=== PATIENT | female | born 1980 | race Caucasian/White ===

== ENCOUNTER 2017-11-01 09:42 | Emergency (ER) | payer OTHER ==
[~2017-11-01] VITALS: Ht 170.2 cm; Wt 99.8 kg
[~2017-11-01 09:42] MED LIST: OXYCODONE-ACETAMINOPHEN 10-325; SULFAMETHOXAZOLE-TMP DS TABLET
--- NOTE | 2017-11-01 10:00 | NUR ---
37F BIB FAMILY WITH C/O BILATERAL LOWER EXTREMITIES PITTING EDEMA/PAIN X 1 WK; PT STATES BLE PAIN UPON PRESSING OR AMBULATING--+2 PEDAL PULSE <3 SEC CAP REFILL; PT STS SHE WAS GIVEN TO DAYS WORTH OF DIURETIC BY PALIATIVE CARE; EDEMA SUBSIDED FOR A DAY OR TWO BUT RETURNED; PT STS HX OF LEFT KIDNEY CANCER; PT DENIES ANY CP OR SOB OR N/V/D; RR ARE EVEN AND UNLABORED; PT CHANGED INTO GOWN; AWAITING ER MD CONNOLLY; PT POSITIONED TO COMFORT; ALL NEEDS MET AT THIS TIME. WILL CONTINUE TO MONITOR.
[2017-11-01 10:10] VITALS: BP 123/65
[2017-11-01 11:09] LABS: BASOPHILS % (AUTO) 0.4 % (0.0-2.0); EOSINOPHILS # (AUTO) 0.1 K/uL (0-0.4); EOSINOPHILS % (AUTO) 1.7 % (0.0-4.0); HEMATOCRIT 34.3 % (36-48); HEMOGLOBIN 11.4 g/dL (12.0-16.0); LYMPHOCYTES # (AUTO) 1.9 K/uL (2.5-16.5); LYMPHOCYTES % (AUTO) 28.2 % (20.5-51.1); MEAN CORPUSCULAR HEMOGLOBIN 29 pg (27-31); MEAN CORPUSCULAR HGB CONC 33 g/dL (33-37); MEAN CORPUSCULAR VOLUME 88.4 fL (80-94); MONOCYTES # (AUTO) 0.5 K/uL (0.8-1.0); MONOCYTES % (AUTO) 7.3 % (1.7-9.3); NEUTROPHILS # (AUTO) 4.1 K/uL (1.8-7.7); NEUTROPHILS % (AUTO) 62.4 % (42.2-75.2); PLATELET COUNT (AUTO) 235 K/uL (140-450); RED BLOOD CELL COUNT(AUTO) 3.88 MIL/uL (4.20-5.40); RED CELL DISTRIBUTION WIDTH 15.8 % (11.6-13.7); WHITE BLOOD COUNT (AUTO) 6.6 K/uL (4.8-10.8)
[2017-11-01 11:23] LABS: ANION GAP 7.4 (8-16); CARBON DIOXIDE 29.5 mmol/L (21-32); CREATININE 0.7 mg/dL (0.6-1.3); POTASSIUM 3.9 mmol/L (3.5-5.1)
[2017-11-01 11:29] LABS: ALBUMIN 2.8 g/dL (3.4-5.0); TOTAL BILIRUBIN 0.2 mg/dL (0.0-1.0)
--- NOTE | 2017-11-01 11:49 | NUR ---
pt ambulated to and from bathroom with steady gait. returned back to rm 1 without incident.
[2017-11-01 13:55] VITALS: BP 132/79
--- NOTE | 2017-11-01 13:56 | NUR ---
Patient discharged with v/s stable. Written and verbal after care instructions given and explained. Patient alert, oriented and verbalized understanding of instructions. Ambulatory with steady gait. All questions addressed prior to discharge. ID band removed. Patient advised to follow up with PMD. Rx of COMPRESSION STOCKINGS given. Patient educated on indication of medication including possible reaction and side effects. Opportunity to ask questions provided and answered.
== END 2017-11-01 13:56 | disposition home or self-care (01) ==
LOC: MED 09:42
DX: R60.0 Localized edema (principal); K21.9 Gastro-esophageal reflux disease without esophagitis; Z85.528 Personal history of other malignant neoplasm of kidney; Z90.49 Acquired absence of other specified parts of digestive tract; Z88.1 Allergy status to other antibiotic agents; Z79.2 Long term (current) use of antibiotics
CPT/HCPCS: 36415; 80053; 81025; 85025; 99285

== ENCOUNTER 2018-06-09 13:41 | Emergency (ER) | payer OTHER ==
[~2018-06-09] VITALS: Ht 170.2 cm; Wt 111.1 kg
[2018-06-09 13:55] VITALS: BP 111/75
--- NOTE | 2018-06-09 13:55 | NUR ---
Pt ambulates back to the lobby
--- NOTE | 2018-06-09 14:56 | NUR ---
PT TO ER BED 2
--- NOTE | 2018-06-09 15:00 | NUR ---
PT BIB CAREGIVER TO THE ED WITH THE CHIEF C/O TONGUE PAIN SINCE YESTERDAY. PT HAS WHITE PATCH ON HER TONGUE. PT STATES HAS NUMBNESS ON HER TONGUE. DENIES ANY OTHER PROBLEM AT THIS TIME. AFEBRILE. ER MD AWARE.
[2018-06-09] MEDS ORDERED: LIDOCAINE VISCOUS 2% 20 ML UDC PO ONE (15:25)
--- NOTE | 2018-06-09 15:40 | NUR ---
Patient discharged with v/s stable. Written and verbal after care instructions given and explained. Patient alert, oriented and verbalized understanding of instructions. Ambulatory with steady gait. All questions addressed prior to discharge. ID band removed. Patient advised to follow up with PMD. Rx of LIDOCAINE AND KENALOG given. Patient educated on indication of medication including possible reaction and side effects. Opportunity to ask questions provided and answered.
[2018-06-09 15:51] VITALS: BP 101/78
== END 2018-06-09 15:40 | disposition home or self-care (01) ==
LOC: MED 13:41
DX: K12.0 Recurrent oral aphthae (principal); K21.9 Gastro-esophageal reflux disease without esophagitis; Z88.1 Allergy status to other antibiotic agents; Z79.899 Other long term (current) drug therapy; Z85.528 Personal history of other malignant neoplasm of kidney
CPT/HCPCS: 99283

== ENCOUNTER 2018-07-05 15:33 | Emergency (ER) | payer OTHER ==
[~2018-07-05] VITALS: Ht 170.2 cm; Wt 111.2 kg
[2018-07-05 15:40] VITALS: BP 118/61
--- NOTE | 2018-07-05 16:10 | NUR ---
38 Y FEMALE BIB FAMILY C/O COUGH X4 WEEKS AND SOB X2 DAYS. PT REPORTS USING INHALER WITH NO RELIEF. ABD PAIN THROUGHOUT ENTIRE ABD FROM COUGH AT 9/10. RR EVEN, NON-LABORED, WHEEZING THROUGOUT. VSS AT THIS TIME. AA0X4. BED IS DOWN, LOCKED, BED RAIL X 1, ERMD NOTIFIED. MEDHX:RENAL CELL CARCINOMA, RX:XANAX, HYDROCODONE, VENLAFAXINE, ALBUTEROL
[2018-07-05 17:02] VITALS: BP 115/71
--- NOTE | 2018-07-05 17:02 | NUR ---
Patient discharged with v/s stable. Written and verbal after care instructions given and explained. Patient alert, oriented and verbalized understanding of instructions. Ambulatory with steady gait. All questions addressed prior to discharge. ID band removed. Patient advised to follow up with PMD. Rx of PREDNISONE, ALBUTEROL given. Patient educated on indication of medication including possible reaction and side effects. Opportunity to ask questions provided and answered.
== END 2018-07-05 17:02 | disposition home or self-care (01) ==
LOC: MED 15:33
DX: R05 Cough (principal); R07.89 Other chest pain; R06.02 Shortness of breath; K21.9 Gastro-esophageal reflux disease without esophagitis; M48.00 Spinal stenosis, site unspecified; M19.90 Unspecified osteoarthritis, unspecified site; Z85.528 Personal history of other malignant neoplasm of kidney; Z88.1 Allergy status to other antibiotic agents; Z79.2 Long term (current) use of antibiotics; Z98.890 Other specified postprocedural states
CPT/HCPCS: 99283

== ENCOUNTER 2018-07-10 13:12 | Observation (INO) | payer OTHER ==
[~2018-07-10] VITALS: Ht 170.2 cm; Wt 110.7 kg
[2018-07-10 13:30] VITALS: BP 108/54
--- NOTE | 2018-07-10 13:40 | NUR ---
pt ambulated to er bed 04
--- NOTE | 2018-07-10 13:45 | NUR ---
LUNG SOUND WHEEZING. ERMD AT BEDSIDE ASSESSING PATIENT. MONITORED
[2018-07-10] MEDS ORDERED: ALBUTEROL SULFATE/IPRATROPIU 3 ML SOL IH ONE (13:50)
--- NOTE | 2018-07-10 13:58 | NUR ---
RESPIRATORY TREATMENT IN PROGRESS
[2018-07-10] MEDS ORDERED: NACL 0.9% 2,000 ML IV ONE (14:05)
--- NOTE | 2018-07-10 14:05 | NUR ---
PT PRESENTED TO THE ED WITH THE CHIEF C/O SOB SINCE THIS MORNING. PER CAREGIVER, PT IS HAVING COUGH WITH PHLEGM FOR 2 WEEKS, NO BLOOD IN COUGH. WHEEZING LUNGS SOUND. +COUGH. DENIES FEVER. PT WAS HERE 2 WEEKS AGO FOR SAME REASON. TAKING PREDNISONE AND INHALER SINCE THEN. DENIES N/V/D. STATES HEADACHE AND PAIN AT LEFT CHEST 8/10 AT THIS TIME. ER AWARE.
--- NOTE | 2018-07-10 14:15 | NUR ---
PT ENCOURAGED TO PROVIDE URINE SAMPLE. REFUSED STARIGHT CATH FOR UA COLLECTION.
[2018-07-10 14:18] LABS: BASOPHILS % (AUTO) 0.2 % (0.0-2.0); EOSINOPHILS % (AUTO) 0.3 % (0.0-4.0); HEMATOCRIT 30.7 % (36-48); HEMOGLOBIN 9.6 g/dL (12.0-16.0); LYMPHOCYTES % (AUTO) 13.4 % (20.5-51.1); MEAN CORPUSCULAR HEMOGLOBIN 26 pg (27-31); MEAN CORPUSCULAR HGB CONC 31 g/dL (33-37); MEAN CORPUSCULAR VOLUME 83.9 fL (80-94); MONOCYTES # (AUTO) 0.7 K/uL (0.8-1.0); MONOCYTES % (AUTO) 4.8 % (1.7-9.3); NEUTROPHILS # (AUTO) 12.1 K/uL (1.8-7.7); NEUTROPHILS % (AUTO) 81.3 % (42.2-75.2); PLATELET COUNT (AUTO) 421 K/uL (140-450); RED BLOOD CELL COUNT(AUTO) 3.66 MIL/uL (4.20-5.40); RED CELL DISTRIBUTION WIDTH 17.3 % (11.6-13.7); WHITE BLOOD COUNT (AUTO) 14.9 K/uL (4.8-10.8)
--- NOTE | 2018-07-10 14:30 | NUR ---
patient stated feeling much better after the treatment.non labored breathing
[2018-07-10 14:36] LABS: PROTHROMBIN TIME 9.9 secs (10.8-13.4)
[2018-07-10 14:39] LABS: ALBUMIN 2.5 g/dL (3.4-5.0); ANION GAP 10.7 (8-16); CARBON DIOXIDE 28.2 mmol/L (21-32); POTASSIUM 3.9 mmol/L (3.5-5.1); TOTAL BILIRUBIN 0.2 mg/dL (0.0-1.0)
[2018-07-10] MEDS ORDERED: AZITHROMYCIN 500 MG in DEXTROSE 5% 250 ML IV ONE (15:45)
[2018-07-10] MEDS ORDERED: cefTRIAXone 1,000 MG VIAL ONE (16:26)
[2018-07-10] MEDS ORDERED: AZITHROMYCIN 500 MG INJ VIAL IV ONE (16:27)
--- NOTE | 2018-07-10 16:48 | NUR ---
Patient admitted to care of DR. SCHWARTZ. Admited to TELE UNIT. Transferred to [facility] [place] via [facility] on stable condition. Belongings list completed. Report given to BRADY Gonzales.
[2018-07-10] MEDS ORDERED: LIDOCAINE VISCOUS 2% 20 ML UDC PO STA (17:07)
[2018-07-10] MEDS ORDERED: [UNRECOGNIZED DRUG - CODE] PO (17:38)
[2018-07-10] MEDS ORDERED: GABA300C PO (17:38)
[2018-07-10] MEDS ORDERED: [UNRECOGNIZED DRUG - CODE] PO (17:38)
[2018-07-10] MEDS ORDERED: ALPR2TAB1 PO (17:38)
--- NOTE | 2018-07-10 17:38 | NUR ---
ADMISSION VITAL SIGNS: TEMP-98.4, HR-92, BP-108/64, RR-18, O2-92%, PAIN-O.
--- NOTE | 2018-07-10 17:48 | NUR ---
RECEIVED REPORT FROM ED NURSE. PT IS AAOX4, AMBULATORY. DX OF PNA. PT IS ABLE TO MAKE NEEDS KNOWN. IV IN THE RIGHT HAND 22G. INTACT AND PATENT. VITAL SIGNS ARE STABLE. WHEEZING HEARD THROUGHOUT LUNG SOUNDS. PT IS VERBALIZING THAT BREATHING TREATMENTS ARE NEEDED. DR SCHWARTZ IS AWARE. PT CURRENTLY INFUSING ROCEPHIN IV. MRSA AND UA TAKEN TO LAB. PT IN STABLE CONDITION. WILL CONTINUE TO MONITOR.
[2018-07-10] MEDS ORDERED: ALUMINUM HYD/MAG/SIMETHICONE 30 ML UDC PO PRN (18:35)
[2018-07-10] MEDS ORDERED: ACETAMINOPHEN 325 MG TAB PO PRN ×2 (18:35)
[2018-07-10] MEDS ORDERED: DOCUSATE SODIUM 250 MG GELCAP PO PRN (18:35)
[2018-07-10] MEDS ORDERED: ZOLPIDEM 5 MG TAB PO PRN (18:35)
[2018-07-10] MEDS ORDERED: SODIUM PHOSPHATE 118 ML ENEM RC PRN (18:35)
[2018-07-10] MEDS ORDERED: MAGNESIUM OXIDE 400 MG TAB PO PRN (18:35)
[2018-07-10] MEDS ORDERED: MAG SULF 2000 MG/WATER PREMIX 50 ML IV PRN (18:35)
[2018-07-10] MEDS ORDERED: MORPHINE SULFATE 2 MG/ML SYR IVP PRN (18:35)
[2018-07-10] MEDS ORDERED: ONDANSETRON 4 MG/2 ML VIAL IVP PRN ×2 (18:35)
[2018-07-10] MEDS ORDERED: cloNIDine 0.1 MG TAB PO PRN (18:35)
[2018-07-10] MEDS ORDERED: LORazepam 2 MG/ML VIAL IVP PRN (18:35)
[2018-07-10] MEDS ORDERED: HYDROcodone/APAP 5/325 MG 1 TAB TAB PO PRN ×2 (18:35)
[2018-07-10] MEDS ORDERED: POTASSIUM CHLORIDE 10 MEQ TABER PO PRN (18:35)
[2018-07-10] MEDS ORDERED: diphenhydrAMINE 50 MG/ML VIAL IVP PRN (18:35)
[2018-07-10] MEDS ORDERED: POTASSIUM CHLORIDE 40 MEQ, LIDOCAINE 1% 25 MG in NACL 0.9% 250 ML IV PRN (18:35)
[2018-07-10] MEDS ORDERED: ALBUTEROL 0.083% 2.5 MG/3 ML NEBU NEB PRN (18:35)
[2018-07-10] MEDS ORDERED: ACETAMINOPHEN 650 MG SUPP RC PRN (18:35)
[2018-07-10] MEDS ORDERED: BISACODYL 10 MG SUPP RC PRN (18:35)
[2018-07-10] MEDS ORDERED: guaiFENesin DM 200/20 MG-10 ML 10 ML UDC PO PRN (18:35)
[2018-07-10 18:42] LABS: APPEARANCE,URINE HAZY (CLEAR); BILIRUBIN,URINE NEGATIVE (NEGATIVE); BLOOD, URINE 1+ (NEGATIVE); COLOR,URINE YELLOW (YELLOW); LEUKOCYTE ESTERASE ,URINE TRACE (NEGATIVE); NITRITE, URINE NEGATIVE (NEGATIVE); UGLUCOSE NEGATIVE (NEGATIVE)
[2018-07-10 18:50] LABS: WBC,URINE 0-5 /HPF (0-5)
[2018-07-10] MEDS ORDERED: ALBUTEROL 0.083% 2.5 MG/3 ML NEBU INH ONE (18:57)
[2018-07-10] MEDS ORDERED: IPRATROPIUM 0.02% 0.5 MG/2.5 ML NEBU INH ONE (18:58)
--- NOTE | 2018-07-10 19:15 | NUR ---
ENDORSED PT TO CRANBERRY FARM SUPERVISOR FOR CONTINUITY OF CARE. PT IN STABLE CONDITION AT THIS TIME.
--- NOTE | 2018-07-10 19:20 | NUR ---
RECEIVED REPORT FROM DAY SHIFT NURSE. AAOX4. NO C/O PAIN OR SOB AT THIS TIME. ON O2 AT 2L/MIN VIA NC. FAMILY AT BEDSIDE. SKIN INTACT. IV TO RIGHT HAND #22G, PATENT AND INTACT. DISCUSSED PLAN OF CARE, PT VERBALIZED UNDERSTANDING. PER DAY SHIFT NURSE, SHE SPOKE WITH DR. SCHWARTZ AND ORDERED TO CONTINUE HOME MEDS. SAFETY PRECAUTION IN PLACE. CALL LIGHT WITHIN REACH.
--- NOTE | 2018-07-10 19:21 | NUR ---
PER DAY SHIFT NURSE, DR. SCHWARTZ ORDERED ROCEPHIN 1 GM IV DAILY AND ZITHROMAX 500 MG IV DAILY. WILL PUT THE ORDER IN THE EMAR.
--- NOTE | 2018-07-10 19:55 | NUR ---
ZITHROMAX 500 MG IVPB DONE. NO ADVERSE REACTION NOTED.
--- NOTE | 2018-07-10 19:55 | NUR ---
SPOKE WITH PT TO CONFIRM HOME MEDS. PER PT, ASK HER CAREGIVER RICHIE ABOUT HER HOME MEDS. SPOKE WITH RICHIE OVER THE PHONE. PER RICHIE PT'S HOME MEDS ARE GABAPENTIN 300 MG AT BEDTIME, XANAX 1 MG TID, DOXEPIN 300 MG BID, VENLAFAXINE 150 MG DAILY AND NORCO 10/325 Q4H PRN FOR PAIN.
[2018-07-10 20:00] VITALS: BP 104/61
[2018-07-10] MEDS ORDERED: ALPRAZOLAM 1 MG PO (20:03)
[2018-07-10] MEDS ORDERED: DOXEPIN HCL PO (20:03)
--- NOTE | 2018-07-10 20:40 | NUR ---
PER PT AND PT'S CAREGIVER, PT IS TAKING DOXEPIN 300 MG BID AT HOME. PER PHARMACIST, MAX DOSE FOR DOXEPIN IS 300 MG/DAY. PHARMACIST WILL ORDER ONE TIME DOSE OF DOXEPIN 300 MG FOR TONIGHT. WILL CLARIFY ORDER WITH DR. SCHWARTZ.
--- NOTE | 2018-07-10 20:48 | NUR ---
PAGED DR. SCHWARTZ FOR DIET, IVF ORDERS. WILL ALSO ASK IF HE WANTS TO REPEAT THE CHEST XRAY BEC THERE'S AN ORDER FOR TODAY AT 1831. DR. HERRERA FARM MECHANIC.
[2018-07-10] MEDS ORDERED: GABAPENTIN 300 MG CAP PO SCH (21:00)
[2018-07-10] MEDS ORDERED: DOXEPIN 25 MG CAP PO SCH (21:00)
--- NOTE | 2018-07-10 21:00 | NUR ---
RECEIVED A CALL FROM DR. HERRERA. PER , WHY AM I ASKING HIM ORDERS, HE DOESN'T KNOW THE PT. NO ORDERS GIVEN. PER , HE WILL ASK DR. SCHWARTZ TO CALL ME.
[2018-07-10] MEDS: DOXEPIN 25 MG CAP PO SCH ×3 (21:30→22:30)
[2018-07-10] MEDS: methylPREDNISolone SS 125 MG/2 ML VIAL IVP SCH (21:54)
--- NOTE | 2018-07-10 22:00 | NUR ---
UNABLE TO COLLECT SPUTUM. PER PT, SHE HAS NO SPUTUM.
--- NOTE | 2018-07-10 22:30 | NUR ---
RECEIVED A CALL FROM DR. SCHWARTZ. ORDERED REGULAR DIET, SALINE LOCK. HE ALSO CANCELLED THE CHEST X-RAY ORDERED FOR TODAY AT 1831.
--- NOTE | 2018-07-10 22:31 | NUR ---
DOXEPIN 25 MG NOT AVAILABLE PER HOUSE SUP. DR. SCHWARTZ MADE AWARE. Addendum: 07/11/18 at 0035 by Fitz Hernandez RN DOXEPIN 300 MG NOT 25 MG.
--- NOTE | 2018-07-10 22:35 | NUR ---
PT C/O UNABLE TO SLEEP. DOXEPIN NOT AVAILABLE. AMBIEN 5 MG PO GIVEN.
[2018-07-11] VITALS: BP 98/59
--- NOTE | 2018-07-11 00:10 | NUR ---
PT SLEEPING. CHECKED V/S, WNL. NO S/S OF SOB OR PAIN.
--- NOTE | 2018-07-11 03:05 | NUR ---
PT ASKED FOR SNACK. SNACK PROVIDED. NEEDS MET AT THIS TIME. CALL LIGHT WITHIN REACH.
[2018-07-11] MEDS: IPRATROPIUM 0.02% 0.5 MG/2.5 ML NEBU INH PRN ×2 (03:29→14:16)
[2018-07-11] MEDS: ALBUTEROL 0.083% 2.5 MG/3 ML NEBU INH PRN ×2 (03:30→14:17)
[2018-07-11 04:00] VITALS: BP 92/62
[2018-07-11] MEDS: methylPREDNISolone SS 125 MG/2 ML VIAL IVP SCH ×2 (04:19→14:06)
--- NOTE | 2018-07-11 04:26 | NUR ---
PT C/O GENERALIZED PAIN 5/10 AND NAUSEA. NORCO 5/325 MG GIVEN FOR PAIN AND ZOFRAN 4 MG FOR NAUSEA. PT TOLERATED WELL.
--- NOTE | 2018-07-11 05:30 | NUR ---
PT LYING IN BED, AWAKE. NO C/O PAIN. NO C/O NAUSEA OR VOMITING. ALL NEEDS PROVIDED AT THIS TIME.
--- NOTE | 2018-07-11 06:15 | NUR ---
PT C/O ANXIETY AND WANTS HER XANAX. EXPLAINED TO PT THAT XANAX 1 MG IS DUE AT 0900 HRS. PT HAS ATIVAN PRN FOR ANXIETY BUT PT REFUSED. PER PT, SHE WILL WAIT FOR XANAX WHEN IS DUE.
[2018-07-11 06:48] LABS: HEMATOCRIT 29.8 % (36-48); HEMOGLOBIN 9.5 g/dL (12.0-16.0); LYMPHOCYTES # (AUTO) 0.6 K/uL (2.5-16.5); LYMPHOCYTES % (AUTO) 5.8 % (20.5-51.1); MEAN CORPUSCULAR HEMOGLOBIN 27 pg (27-31); MEAN CORPUSCULAR HGB CONC 32 g/dL (33-37); MEAN CORPUSCULAR VOLUME 84.4 fL (80-94); MONOCYTES # (AUTO) 0.1 K/uL (0.8-1.0); MONOCYTES % (AUTO) 0.7 % (1.7-9.3); NEUTROPHILS # (AUTO) 10.3 K/uL (1.8-7.7); NEUTROPHILS % (AUTO) 93.5 % (42.2-75.2); PLATELET COUNT (AUTO) 375 K/uL (140-450); RED BLOOD CELL COUNT(AUTO) 3.53 MIL/uL (4.20-5.40); RED CELL DISTRIBUTION WIDTH 17.3 % (11.6-13.7)
[2018-07-11 06:52] LABS: ANION GAP 14.6 (8-16); CARBON DIOXIDE 25.7 mmol/L (21-32); POTASSIUM 4.3 mmol/L (3.5-5.1)
[2018-07-11 06:57] LABS: PROTHROMBIN TIME 9.8 secs (10.8-13.4)
[2018-07-11 07:08] LABS: THYROID STIMULATING HORMONE 0.6 uIU/mL (0.34-3.74)
--- NOTE | 2018-07-11 07:15 | NUR ---
ENDORSED PT TO DAY SHIFT NURSE. PT IN STABLE CONDITION.
--- NOTE | 2018-07-11 07:17 | NUR ---
RECEIVED BEDSIDE REPORT FROM NUISANCE WILDLIFE TRAPPER NURSE FOR CONTINUITY OF CARE. PATIENT IS RESTING ON BED AT THIS TIME. PATIENT IS AOX3, TO NAME, PLACE, AND TIME. ABLE TO MAKE NEEDS KNOWN AND FOLLOW COMMANDS. RESPIRATION EVEN AND UNLABORED. ON 2LPM VIA NC. NO SIGNS OF DISTRESS NOTED. IV ON R HAND 22G, INTACT AND PATENT, SL. SKIN INTACT AND CLEAN. PATIENT IS BEDREST. TELE MONITOR ATTACHED. CONTINENT AND ABLE TO AMBULATE WITH STEADY GAIT. DISCUSSED PLAN OF CARE WITH PATIENT AND PATIENT VERBALIZED OK. BED IN LOW POSITION AND CALL LIGHT WITHIN REACH. INSTRUCTED PATIENT TO USE THE CALL LIGHT FOR ANY ASSISTANCE AND PATIENT WAS AWARE.
[2018-07-11 08:00] VITALS: BP 105/55
--- NOTE | 2018-07-11 08:16 | NUR ---
PATIENT HAS BEEN SCREENED AND CATEGORIZED MODERATE NUTRITION RISK. PATIENT WILL BE SEEN WITHIN 3-5 DAYS OF ADMISSION. 07/13/18[address]
[2018-07-11] MEDS ORDERED: VENLAFAXINE XR 75 MG CAPER PO SCH (09:00)
--- NOTE | 2018-07-11 09:57 | NUR ---
ADMINISTERED MEDS PER MD ORDER, PATIENT TOLERATED WELL. NO SIGNS OF DISTRESS NOTED. TELE MONITOR ATTACHED.
[2018-07-11] MEDS: ALPRAZolam 0.5 MG TAB PO SCH ×3 (09:58→17:14)
[2018-07-11] MEDS ORDERED: AZITHROMYCIN 500 MG in DEXTROSE 5% 250 ML IV SCH (10:00)
--- NOTE | 2018-07-11 11:03 | NUR ---
PATIENT IS RESTING ON BED AND WATCHING TV AT THIS TIME. DENIES PAIN AND SOB. NO SIGNS OF DISTRESS NOTED. AZITHROMYCIN IVP IS INFUSING AT PER MD ORDER. TELE MONITOR ATTACHED.
[2018-07-11 12:00] VITALS: BP 109/56
--- NOTE | 2018-07-11 13:08 | NUR ---
PATIENT IS RESTING ON BED. DENIES PAIN AND SOB. NO SIGNS OF DISTRESS NOTED. TELE MONITOR ATTACHED.
--- NOTE | 2018-07-11 14:10 | NUR ---
PATIENT IS TALKING TO AUNT RICHIE IS AT BEDSIDE. NO SIGNS OF DISTRESS NOTED. TELE MONITOR ATTACHED.
--- NOTE | 2018-07-11 15:20 | NUR ---
PATIENT C/O SEVERE BACK PAIN LEVEL 9, ADMINISTERED PRN PAIN MED. PATIENT IS TALKING TO AUNT RICHIE AT BEDSIDE. NO SIGNS OF DISTRESS NOTED. TELE MONITOR ATTACHED.
[2018-07-11 16:00] VITALS: BP 106/64
--- NOTE | 2018-07-11 17:17 | NUR ---
ADMINISTERED MEDS MD ORDER, PATIENT TOLERATED WELL. PATIENT IS TALKING TO CANDACE AND FAMILY MEMBERS AT BEDSIDE. NO SIGNS OF DISTRESS NOTED. TELE MONITOR ATTACHED.
--- NOTE | 2018-07-11 17:33 | NUR ---
DR SCHWARTZ IS AT BEDSIDE AND TALKING TO PATIENT AND PATIENT'S FAMILY. NO SIGNS OF DISTRESS NOTED. TELE MONITOR ATTACHED.
[2018-07-11] MEDS ORDERED: PRED15SY37 PO (18:07)
[2018-07-11] MEDS ORDERED: PRED20TA5 PO (18:08)
[2018-07-11] MEDS ORDERED: AZIT250T3 PO (18:11)
--- NOTE | 2018-07-11 18:40 | NUR ---
DISCHARGE INSTRUCTION AND MEDICATION PRESCRIPTION PROVIDED TO PATIENT AND FAMILY. EDUCATED PATIENT ON FOLLOW UP WITH MD AFTER DISCHARGE FROM THE HOSPITAL, GO TO THE NEAREST ER OR CALL 911 IF SYMPTOMS WORSEN, SHORT OF BREATH, PAIN, AND SWELLING, EDUCATED PATIENT ON DISEASE MANAGEMENT, SIGNS AND SYMPTOMS, MEDICATION REGIMENS, SIDE EFFECTS, AND DIET REGIMEN. PATIENT AND FAMILY MEMBERS VERBALIZED UNDERSTANDING. D/C IV AND IV CANNULA INTACT, PATIENT TOLERATED WELL. NO BLEEDING AT IV SITE. REMOVED TELE MONITOR AND REMOVED ALL ARM BANDS. PATIENT TOOK ALL HER BELONGINGS. PATIENT IS DISCHARGE AT THIS TIME IN A STABLE CONDITION.
--- NOTE | 2018-07-12 10:32 | NUR ---
Late entry. Confirmed with RN that 2000ml 0.9 NS IV bolus completed at 1630.
--- NOTE | 2018-07-12 11:47 | NUR ---
called office of [facility] [phone] spoke to Emily and follow-up appointment made on 07/20/18 @1030am, [address], [place] [address]. Called patient @ [phone] and patient made aware of the appointment.
== END 2018-07-11 18:40 | disposition home or self-care (01) ==
LOC: MED 13:12 → MMU 16:39
PROVIDERS: ADMIT Internal Medicine Pulmonary Disease; ATTEND Internal Medicine Pulmonary Disease
DX: J18.9 Pneumonia, unspecified organism (principal); F32.9 Major depressive disorder, single episode, unspecified; F31.9 Bipolar disorder, unspecified; Z85.528 Personal history of other malignant neoplasm of kidney; Z98.84 Bariatric surgery status
CPT/HCPCS: 36415; 71045; 80048; 80053; 81001; 83605; 83735; 83880; 84443; 85025; 85610; 85730; 87040; 87070; 87081; 87205; 94640; 94760; 96365; 96366; 96367; 96375; 96376; 99285; G0378; J0456; J0696; J2001; J2270; J2405; J2930; J3480; J7030; J7060; J7613; J7620; J7644; Q0092

== ENCOUNTER 2018-11-10 16:10 | Emergency (ER) | payer OTHER ==
[~2018-11-10] VITALS: Ht 167.6 cm; Wt 115.7 kg
[~2018-11-10 16:10] MED LIST changes: +ALPRAZOLAM 1 MG PO; +AZIT250T3 PO; +DOXEPIN HCL PO; +GABA300C PO; +PRED15SY37 PO; +PRED20TA5 PO; +[UNRECOGNIZED DRUG - CODE] PO
[2018-11-10 16:21] VITALS: BP 130/88
--- NOTE | 2018-11-10 16:27 | NUR ---
PT TO WAIT IN ER LOBBY. VSS. AA0X4.
--- NOTE | 2018-11-10 22:11 | NUR ---
38 Y/O FEMALE PRESENTS TO ED WITH C/O CHRONIC BACK PAIN AND ARTHRITIS. PT STATES SHE NEEDS "PAIN PILLS." 12/28 PAIN. PAIN PRESENT >6 MONTHS. PT STATES SHE IS "IN-BETWEEN" PHYSICIANS AT THIS TIME. ER MD AWARE. CONTINUE TO MONITOR.
--- NOTE | 2018-11-10 22:11 | NUR ---
PT AMBULATED TO CHAIR C.
[2018-11-10 22:40] VITALS: BP 128/72
--- NOTE | 2018-11-10 22:40 | NUR ---
DISCHARGE PAPERS GIVEN TO PT. RX OF NORCO GIVEN. SIDE EFFECTS EXPLAINED. INSTRUCTED TO F/U WITH PCP AND WHEN TO RETURN TO ER. PT VERBALLIZED UNDERSTANDING OF DC INSTRUCTIONS. ALL QUESTIONS ANSWERED.
== END 2018-11-10 22:40 | disposition home or self-care (01) ==
LOC: MED 16:10
DX: M54.89 Other dorsalgia (principal); G89.29 Other chronic pain; Z76.0 Encounter for issue of repeat prescription; Z88.1 Allergy status to other antibiotic agents; Z88.6 Allergy status to analgesic agent; K21.9 Gastro-esophageal reflux disease without esophagitis; Z85.528 Personal history of other malignant neoplasm of kidney; Z79.899 Other long term (current) drug therapy
CPT/HCPCS: 99283

== ENCOUNTER 2019-05-02 15:42 | Emergency (ER) | payer OTHER ==
[~2019-05-02] VITALS: Ht 177.8 cm; Wt 114.3 kg
[2019-05-02 15:45] VITALS: BP 119/67
--- NOTE | 2019-05-02 15:51 | NUR ---
PT AMBULATED TO BED 09.
[2019-05-02] MEDS: ALBUTEROL 0.083% 2.5 MG/3 ML NEBU INH ONE (16:06)
[2019-05-02] MEDS: IPRATROPIUM 0.02% 0.5 MG/2.5 ML NEBU INH ONE (16:06)
[2019-05-02] MEDS: HYDROcodone/APAP 5/325 MG 1 TAB TAB PO ONE (16:20)
--- NOTE | 2019-05-02 16:22 | NUR ---
39 Y/O F C/C FEVER X 1 DAY. PER PT DID NOT TAKE ANYTHING AT HOME FOR FEVER. PT NOT TAKEN FLU SHOT; NO ONE SICK AT HOME. BACK PAIN 10/28. ALLERGIES PNC, MORPHINE. HX CARCINOMA,LUMBAR DISEASE. RX NORCO, ADOXIPIN. DENIES N/V/D. SIDE RAIL X1. FAMILY AT BEDSIDE.
--- NOTE | 2019-05-02 18:03 | NUR ---
Patient discharged with v/s stable. Written and verbal after care instructions given and explained. Patient alert, oriented and verbalized understanding of instructions. Ambulatory with steady gait. All questions addressed prior to discharge. ID band removed. Patient advised to follow up with PMD. Rx of AZITHROMYCIN , ALBURETOL WITH CHAMBER, PROMETHAZINE WITH CODEINE given. Patient educated on indication of medication including possible reaction and side effects. Opportunity to ask questions provided and answered.
[2019-05-02 18:04] VITALS: BP 122/79
== END 2019-05-02 18:03 | disposition home or self-care (01) ==
LOC: MED 15:42
DX: J20.9 Acute bronchitis, unspecified (principal); K21.9 Gastro-esophageal reflux disease without esophagitis; Z87.448 Personal history of other diseases of urinary system; Z85.9 Personal history of malignant neoplasm, unspecified; Z79.899 Other long term (current) drug therapy; Z88.1 Allergy status to other antibiotic agents; Z88.5 Allergy status to narcotic agent
CPT/HCPCS: 71045; 87804; 94640; 99284; J7613; J7644; Q0092

== ENCOUNTER 2019-10-19 19:03 | Emergency (ER) | payer OTHER ==
[~2019-10-19] VITALS: Ht 170.2 cm; Wt 90.7 kg
[2019-10-19 19:09] VITALS: BP 156/91
--- NOTE | 2019-10-19 19:16 | NUR ---
PT AMBULATED TO BED 2 WITH STEADY GAIT
--- NOTE | 2019-10-19 19:20 | NUR ---
PT 39 Y/O FEMALE BIB SELF FOR C/O ANXIETY X 1 DAY. PT STATES, "I JUST WOKE UP FEELING ANXIOUS." PT STATES NOTHIGN TRIGGERED ANXIETY BUT SHE HAS BEEN UNDER A LOT OF STRESS DUE TO FAMILY. PT STATES, "I USED TO TAKE XANAX TO HELP ME BUT I HAVEN'T IN ABOUT 5 MONTHS." PT AAOX 4. RESPIRATIONS ARE EVEN AND UNLABORED. SKIN IS WARM AND DRY TO TOUCH. DENIES PAIN. PT DENIES SI/HI. DENIES A/V HALLUCINATIONS. PT STATES SHE FEELS SAFE AT HOME. MEDHX: ANXIETY ALLERGIES: NKA
--- NOTE | 2019-10-19 19:35 | NUR ---
PATIENT LEFT WITHOUT BEING SEEN BY DR. YA. NO FURTHER CARE PROVIDED FOR PATIENT.
== END 2019-10-19 19:35 | disposition left against medical advice (07) ==
LOC: MED 19:03
DX: F41.9 Anxiety disorder, unspecified (principal); Z53.21 Procedure and treatment not carried out due to patient leaving prior to being seen by health care provider

== ENCOUNTER 2019-12-18 20:49 | Emergency (ER) | payer OTHER ==
[~2019-12-18] VITALS: Ht 170.2 cm; Wt 93.0 kg
[2019-12-18 20:49] VITALS: BP 146/91
--- NOTE | 2019-12-18 20:49 | NUR ---
PT KARL VILLALTAS. TAKEN TO BED 4
--- NOTE | 2019-12-18 21:02 | NUR ---
PT IS C/O LLQ PAIN RADIATING INTO HER L LOWER BACK X 2 DAYS, PAIN IS A STABBING TYPE PAIN 09/27. AERA IS PAINFUL TO PALPATION. +N/D, DENIES VOMITING. AFEBRILE. PT ALSO C/O BURNING WITH URINATION AT TIMES, DENIES BLOOD IN URINE. PT HAS HX OF L KIDNEY CA AND HAD PART OF L KIDNEY REMOVED. PT BEGAN HAVING DIZZINESS 1 HR AGO WELL. NO VISION ISSUES, NO HEADACHE. BED IN LOWEST POSITION AND SIDERAIL UP X 1 ALLERGIES - AMOX, MORPHINE HX - L KIDNEY CA
--- NOTE | 2019-12-18 21:12 | NUR ---
PT IS NOW ALSO C/O OF VAGINAL DISCHARGE WITH A FOUL ODOR X 1 MONTH, HAS NOT SEEN A DOCTOR REGARDING ISSUE. PT HAS NOT HAD A PERIOD IN MONTHS BUT STATES SHE'S TAKEN MULITPLE PREGNANCT TESTS AND THEY HAVE ALL BEEN NEGATIVE. ADVISED WE NEED A UA FROM PT, CUP AT BEDSIDE, SHE IS UNABLE TO GO AT THIS TIMW.
--- NOTE | 2019-12-18 21:29 | NUR ---
Dr. Paz examining patient.
[2019-12-18] MEDS ORDERED: ONDANSETRON 4 MG/2 ML VIAL IVP ONE (21:35)
[2019-12-18] MEDS ORDERED: NACL 0.9% 1,000 ML IV ONE (21:35)
[2019-12-18] MEDS ORDERED: MECLIZINE 25 MG TAB PO ONE ×2 (21:35→22:55)
--- NOTE | 2019-12-18 21:54 | NUR ---
PT UP AND AMBULATED TO RESTROOM WITH STEADY GAIT
[2019-12-18 22:10] LABS: BASOPHILS % (AUTO) 0.5 % (0.0-2.0); EOSINOPHILS % (AUTO) 0.6 % (0.0-4.0); HEMATOCRIT 30.9 % (36-48); HEMOGLOBIN 9.7 g/dL (12.0-16.0); LYMPHOCYTES # (AUTO) 2.6 K/uL (2.5-16.5); LYMPHOCYTES % (AUTO) 34.5 % (20.5-51.1); MEAN CORPUSCULAR HEMOGLOBIN 26 pg (27-31); MEAN CORPUSCULAR HGB CONC 31 g/dL (33-37); MEAN CORPUSCULAR VOLUME 82.1 fL (80-94); MONOCYTES # (AUTO) 0.6 K/uL (0.8-1.0); MONOCYTES % (AUTO) 8.5 % (1.7-9.3); NEUTROPHILS # (AUTO) 4.1 K/uL (1.8-7.7); NEUTROPHILS % (AUTO) 55.9 % (42.2-75.2); PLATELET COUNT (AUTO) 370 K/uL (140-450); RED BLOOD CELL COUNT(AUTO) 3.76 MIL/uL (4.20-5.40); RED CELL DISTRIBUTION WIDTH 17.7 % (11.6-13.7); WHITE BLOOD COUNT (AUTO) 7.4 K/uL (4.8-10.8)
[2019-12-18] MEDS ORDERED: NITROFURANTOIN 100 MG CAP PO ONE (22:10)
--- NOTE | 2019-12-18 22:14 | NUR ---
URINE DIP AND PREG DONE AND SHOWN TO . UA TAKEN TO LAB.
[2019-12-18 22:25] LABS: ANION GAP 11.1 (8-16); ASPARTATE AMINOTRANSFERASE 20 U/L (15-37); CARBON DIOXIDE 26.3 mmol/L (21-32); CHLORIDE 107 mmol/L (98-107); CREATININE 0.9 mg/dL (0.6-1.3); GFR ARICAN-AMERICAN 90 mL/min (>90); GLUCOSE 108 mg/dL (74-106); LIPASE 82 U/L (73-393); POTASSIUM 3.4 mmol/L (3.5-5.1); SODIUM SERUM 141 mmol/L (136-145); TOTAL BILIRUBIN 0.3 mg/dL (0.0-1.0); UREA NITROGEN, BLOOD 9 mg/dL (7-18)
[2019-12-18 22:33] LABS: BARBITURATE, URINE NEGATIVE ng/ml (NEG <=200); BENZODIAZEPINE, URINE NEGATIVE ng/mL (NEG <=200); CANNABINOID, URINE NEGATIVE ng/mL (NEG <=50); COCAINE, URINE NEGATIVE ng/mL (NEG <=300); OPIATE, URINE NEGATIVE ng/mL (NEG <=2000); PHENCYCLIDINE SCREEN,URINE NEGATIVE ng/mL (NEG <=25)
[2019-12-18] MEDS ORDERED: KETOROLAC 30 MG/ML VIAL IVP ONE (22:55)
[2019-12-18 23:25] VITALS: BP 142/88
--- NOTE | 2019-12-18 23:27 | NUR ---
Patient discharged with v/s stable. Written and verbal after care instructions given and explained. Patient alert, oriented and verbalized understanding of instructions. Ambulatory with steady gait. All questions addressed prior to discharge. ID band removed. Patient advised to follow up with PMD. Rx of MECLIZINE, IBUPROFEN, AND MACROBID given. Patient educated on indication of medication including possible reaction and side effects. Opportunity to ask questions provided and answered.
[2019-12-18 23:59] LABS: APPEARANCE,URINE CLOUDY (CLEAR); BILIRUBIN,URINE NEGATIVE (NEGATIVE); BLOOD, URINE NEGATIVE (NEGATIVE); COLOR,URINE YELLOW (YELLOW); LEUKOCYTE ESTERASE ,URINE 1+ (NEGATIVE); NITRITE, URINE POSITIVE (NEGATIVE); UGLUCOSE NEGATIVE (NEGATIVE)
[2019-12-19 00:09] LABS: RBC,URINE 0-5 /HPF (0-5)
[2019-12-19 00:10] LABS: URINE AMORPHOUS URATE 1+ /HPF (None Seen)
--- NOTE | 2019-12-21 15:48 | NUR ---
DISCREPANCY CALL BACK LOG PAPER REVIEWED BY DR. INFANTE - PLACED IN DISCREPENCY LOG
== END 2019-12-18 23:27 | disposition home or self-care (01) ==
LOC: MED 20:49
DX: R42 Dizziness and giddiness (principal); N39.0 Urinary tract infection, site not specified; F15.10 Other stimulant abuse, uncomplicated; F17.210 Nicotine dependence, cigarettes, uncomplicated; N28.9 Disorder of kidney and ureter, unspecified; Z72.0 Tobacco use; Z88.0 Allergy status to penicillin; Z88.1 Allergy status to other antibiotic agents; Z88.6 Allergy status to analgesic agent; Z85.9 Personal history of malignant neoplasm, unspecified; Z79.899 Other long term (current) drug therapy
CPT/HCPCS: 36415; 80053; 80305; 81001; 81025; 83690; 84484; 84702; 85025; 87086; 93005; 96361; 96374; 99284; G0482; J1885; J2405; J7030; J8597

== ENCOUNTER 2019-12-24 18:32 | Emergency (ER) | payer OTHER ==
[~2019-12-24] VITALS: Ht 170.2 cm; Wt 99.8 kg
[2019-12-24 18:35] VITALS: BP 132/76
--- NOTE | 2019-12-24 19:52 | NUR ---
PT WAS D/C WITH VSS. PT WAS INSTRUCTED TO FOLLOW UP WITH PCP AND EDUCATED ON IN HOME CARE. PT UNDERSTOOD. NO SIGN OF DISTRESS NOTED. PT AMBULATED OUT OF ER. PT WAS GIVEN MEDICATION PRESCRIPTION.
[2019-12-24 19:54] VITALS: BP 132/76
== END 2019-12-24 19:54 | disposition home or self-care (01) ==
LOC: MED 18:32
DX: N39.0 Urinary tract infection, site not specified (principal); F15.10 Other stimulant abuse, uncomplicated; K21.9 Gastro-esophageal reflux disease without esophagitis; N28.9 Disorder of kidney and ureter, unspecified; Z98.84 Bariatric surgery status; Z88.1 Allergy status to other antibiotic agents; Z88.6 Allergy status to analgesic agent; Z79.899 Other long term (current) drug therapy; Z85.9 Personal history of malignant neoplasm, unspecified
CPT/HCPCS: 81002; 81025; 82948; 99283

== ENCOUNTER 2020-03-07 11:13 | Emergency (ER) | payer OTHER | END 2020-03-07 17:10 | disposition left against medical advice (07) | LOC: MED 11:13 | DX: Z53.21 Procedure and treatment not carried out due to patient leaving prior to being seen by health care provider (principal) ==

== ENCOUNTER 2020-03-08 16:26 | Emergency (ER) | payer OTHER ==
[~2020-03-08] VITALS: Ht 170.2 cm; Wt 93.0 kg
[2020-03-08 16:45] VITALS: BP 135/79
[2020-03-08 17:42] LABS: BASOPHILS % (AUTO) 0.5 % (0.0-2.0); EOSINOPHILS # (AUTO) 0.1 K/uL (0-0.4); HEMATOCRIT 32.3 % (36-48); HEMOGLOBIN 10.1 g/dL (12.0-16.0); LYMPHOCYTES # (AUTO) 2.5 K/uL (2.5-16.5); LYMPHOCYTES % (AUTO) 35.1 % (20.5-51.1); MEAN CORPUSCULAR HEMOGLOBIN 24 pg (27-31); MEAN CORPUSCULAR HGB CONC 31 g/dL (33-37); MEAN CORPUSCULAR VOLUME 77.3 fL (80-94); MONOCYTES # (AUTO) 0.5 K/uL (0.8-1.0); NEUTROPHILS # (AUTO) 3.9 K/uL (1.8-7.7); NEUTROPHILS % (AUTO) 56.4 % (42.2-75.2); PLATELET COUNT (AUTO) 370 K/uL (140-450); RED BLOOD CELL COUNT(AUTO) 4.18 MIL/uL (4.20-5.40); RED CELL DISTRIBUTION WIDTH 18.2 % (11.6-13.7)
[2020-03-08 17:58] LABS: ALBUMIN 3.4 g/dL (3.4-5.0); ANION GAP 13.6 (8-16); CARBON DIOXIDE 27.5 mmol/L (21-32); CREATININE 0.9 mg/dL (0.6-1.3); POTASSIUM 4.1 mmol/L (3.5-5.1); TOTAL BILIRUBIN 0.1 mg/dL (0.0-1.0)
[2020-03-08 18:07] LABS: BARBITURATE, URINE NEGATIVE ng/ml (NEG <=200); BENZODIAZEPINE, URINE NEGATIVE ng/mL (NEG <=200); CANNABINOID, URINE NEGATIVE ng/mL (NEG <=50); COCAINE, URINE NEGATIVE ng/mL (NEG <=300); OPIATE, URINE NEGATIVE ng/mL (NEG <=2000); PHENCYCLIDINE SCREEN,URINE NEGATIVE ng/mL (NEG <=25)
--- NOTE | 2020-03-08 18:31 | NUR ---
PATIENT ELOPED FROM FACILITY. DISCHARGE INSTRUCTIONS AND PRESCRIPTION NOT GIVEN TO PATIENT. DR. FLOWERS NOTIFIED.
--- NOTE | 2020-03-08 18:48 | NUR ---
PT CAME BACK AND DISCHARGE PAPERWORK, ALL LAB RESULTS, AND PRESCRIPTION GIVEN TO PT IN THE TRIAGE ROOM IN PRIVATE. EXPLAINED AND ANSWERED PT'S QUESTIONS IN PRIVATE. INSTRUCTED PT HOW TO CORRECTLY TAKE MEDICATIONS. ARM BAND REMOVED.
== END 2020-03-08 18:48 | disposition home or self-care (01) ==
LOC: MED 16:26
DX: N39.0 Urinary tract infection, site not specified (principal); F15.10 Other stimulant abuse, uncomplicated; K21.9 Gastro-esophageal reflux disease without esophagitis; Z87.448 Personal history of other diseases of urinary system; Z85.528 Personal history of other malignant neoplasm of kidney; Z98.890 Other specified postprocedural states; Z79.2 Long term (current) use of antibiotics; Z79.899 Other long term (current) drug therapy; Z79.891 Long term (current) use of opiate analgesic; Z88.0 Allergy status to penicillin; Z88.5 Allergy status to narcotic agent
CPT/HCPCS: 36415; 80053; 80305; 81025; 85025; 99283

== ENCOUNTER 2022-12-01 14:19 | Emergency (ER) | payer BC, MEDICAID ==
[~2022-12-01] VITALS: Ht 170.2 cm; Wt 86.4 kg
[~2022-12-01 14:19] MED LIST changes: +PRED15SO53 PO; -PRED15SY37 PO
[2022-12-01 14:40] VITALS: BP 126/64; PULSE 92; RESP 20; TEMP 97.7; O2SAT 100
[2022-12-01 16:00] VITALS: PULSE 92; RESP 20; TEMP 97.7; O2SAT 100
== END 2022-12-01 16:00 | disposition left against medical advice (07) ==
LOC: MED 14:19
DX: S91.332A Puncture wound without foreign body, left foot, initial encounter (principal); S91.331A Puncture wound without foreign body, right foot, initial encounter; Z53.21 Procedure and treatment not carried out due to patient leaving prior to being seen by health care provider; X58.XXXA Exposure to other specified factors, initial encounter; Y93.89 Activity, other specified; Y92.89 Other specified places as the place of occurrence of the external cause; Y99.8 Other external cause status
CPT/HCPCS: 99281

== ENCOUNTER 2023-01-03 02:20 | Emergency (ER) | payer BC ==
[~2023-01-03] VITALS: Ht 170.2 cm; Wt 84.4 kg
[2023-01-03 02:29] VITALS: BP 126/76; PULSE 76; RESP 20; TEMP 98; O2SAT 98
[2023-01-03 03:30] VITALS: BP 126/76; PULSE 76; RESP 20; TEMP 98
[2023-01-03] MEDS ORDERED: ACETAMINOPHEN EXTRA STRENGTH 500 MG TAB PO ONE (05:05)
[2023-01-03] MEDS ORDERED: BACITRACIN OINT 500 UNITS/GM PKT TP ONE (05:05)
[2023-01-03 05:34] VITALS: O2SAT 98
[2023-01-03] MEDS ORDERED: ACET-10509 PO ×2 (05:38→06:07)
[2023-01-03] MEDS ORDERED: SULF-59 PO ×2 (05:38→06:07)
== END 2023-01-03 06:01 | disposition home or self-care (01) ==
LOC: MED 02:20
DX: S90.821A Blister (nonthermal), right foot, initial encounter (principal); K21.9 Gastro-esophageal reflux disease without esophagitis; Z87.448 Personal history of other diseases of urinary system; Z79.899 Other long term (current) drug therapy; Z79.2 Long term (current) use of antibiotics; Z88.0 Allergy status to penicillin; Z88.5 Allergy status to narcotic agent; X58.XXXA Exposure to other specified factors, initial encounter; Y92.89 Other specified places as the place of occurrence of the external cause; Y93.89 Activity, other specified; Y99.8 Other external cause status
CPT/HCPCS: 99283